=== PATIENT | male | born 1965 | race African-American/Black ===

== ENCOUNTER 2018-12-30 17:55 | Emergency (ER) | payer OTHER ==
[~2018-12-30] VITALS: Ht 165.1 cm; Wt 74.4 kg
--- OUTSIDE RECORDS SUMMARY | 2018-12-30 17:57 | XMS REPORT ---
Author Author [facility] Address Unknown Phone Unavailable Care Team Providers [employer] T[employer] Name Role Phone Brian Ceballos Unavailable Unavailable Problems This patient has no known problems. Allergies, Adverse Reactions, Alerts This patient has no known allergies or adverse reactions. Medications This patient has no known medications. Results Test Description Test Time Test Comments Text Results Atomic Results Result Comments Complete blood count (CBC) with automated white blood cell (WBC) differential 2017-10-25 11:17:00 White blood cell count (test uisr=AXW1652) 2.6 4.3-10.9 Blood erythrocytes count (number/volume) (test pbzn=27127-7) 3.68 M/ul 4.33-5.43 Hemoglobin measurement (test ookq=YNW3927) 13.1 g/dL 13.6-17.9 Blood hematocrit (volume fraction) (test kpvv=73043-7) 38.0 % 39.6-49.0 MCV (test kpyc=56698-7) 103.4 fL 80-100 MCH (test hrqp=67180-3) 35.7 pg 27.0-35.0 MCHC (test code=MCHC) 34.5 g/dL 32.0-36.0 Platelets (test code=PLT) 108 152-406 Red Cell Distribution Width (test code=RDW) 12.4 % 12.1-15.2 Blood platelet mean volume (test ewle=89972-6) 8.8 fL 7.6-11.3 Neutrophils % (test code=MICHELE%) 56.6 % 41.7-73.7 Lymphocytes/leuk NFr Bld (test hodp=35297-3) 32.8 % 15.3-44.8 Monocyte percentage (test qiso=4096-6) 7.9 % 3.3-12.3 Eosinophil % (test ksas=031-6) 2.0 % 0-4.4 Basophil % (test ohgm=01533-3) 0.7 % 0-1.3 Absolute neutrophil count (test akwv=438-4) 1.5 1.8-8.0 Absolute lymphocyte count (test xbvp=88399-3) 0.8 0.7-4.9 Absolute monocyte count (test rlzs=926-1) 0.2 0.1-1.3 Absolute Eosinophils (test code=EOA) 0.1 0-0.5 Absolute Basophils (test code=BASA) 0.0 0-0.5 Blood smear scan (BSS)2017-10-25 11:17:00* Test Item Value Reference Range Comments Blood morphology interpretation narrative (test nmkq=41940-0) NOT SEEN NOT SEEN Basic Metabolic Dibap3751-66-69 11:10:00* Test Item Value Reference Range Comments Sodium level (test qree=JKC6581) 139 meq/L 135-145 3.4 Chloride measurement (test engs=JYQ3183) 107 meq/L 101-111 Bicarbonate (test code=CO2) 27 meq/L 21-31 Glucose measurement (test dmvs=PDH9449) 122 mg/dL 65-120 ADA Clinical Practice Recommendation: <100 mg/dl=Normal Fasting Glucose BUN Bld-mCnc (test wkux=8301-1) 10 mg/dL 6-20 Creatinine measurement (test wthw=IRE7001) 1.04 mg/dL 0.61-1.24 The creatinine method used has been calibrated to be traceable to Isotope dilution Mass Spectrometry (IDMS). For more information: www.nkdep.nih.gov Estimated glomerular filtration rate (GFR) determination (test pany=99475-9) >90 mL =/>90 FOR CHRONIC KIDNEY DISEASE: GFR STAGE DESCRIPTION=/>90 STAGE 1 NORMAL--OR-- MINIMAL KIDNEY DAMAGE WITH NORMAL GFR 60-89 STAGE 2 MILD DECREASE IN GFR 30-59 STAGE 3 MODERATE DECREASE IN GFR 15-29 STAGE 4 SEVERE DECREASE IN GFR <15 STAGE 5 KIDNEY FAILURE The Glomerular Filtration Rate (GFR) has been calculated using the IDMS-Traceable MDRD Study Equation. Calcium Level (test code=CA) 9.1 mg/dL 8.5-10.5 Comment Bed:13
[2018-12-30] MEDS ORDERED: BROMFED DM COU118 ML PO (18:27)
[2018-12-30] MEDS ORDERED: BACTRIM DS TAB1 EACH PO (18:27)
[2018-12-30] MEDS ORDERED: VENTOLIN HFA18 GM PO (18:27)
[2018-12-30] MEDS ORDERED: DOXYCYCLINE HY100 MG PO (18:42)
--- NOTE | 2018-12-30 19:01 | Diagnostic Imaging Report ---
Frontal and lateral views of the chest. HISTORY: Productive cough COMPARISON: None available. DISCUSSION: Lungs: Mild prominence of the central bronchial interstitial markings. No evidence of a consolidative pneumonia or pulmonary alveolar edema. Pleura: No pleural effusion or pneumothorax. Heart and mediastinum: The cardiomediastinal silhouette appears unremarkable. Bones and soft tissues: Appear unremarkable. IMPRESSION: 1. Findings which can be seen in the setting of a nonspecific bronchitis. 2. No consolidative pneumonia. Signed by: Dr. Chevy Bailey D.O., M.M.M. on 12/30/2018 6:58 PM
== END 2018-12-30 19:06 | disposition home or self-care (01) ==
LOC: FSED 17:55
DX: R05 Cough (principal); J20.9 Acute bronchitis, unspecified; B20 Human immunodeficiency virus [HIV] disease
CPT/HCPCS: 71046; 87400; 99283

== ENCOUNTER 2019-01-27 13:52 | Emergency (ER) | payer OTHER ==
[~2019-01-27] VITALS: Ht 165.1 cm; Wt 74.4 kg
[~2019-01-27 13:52] MED LIST: BACTRIM DS TAB1 EACH PO; BROMFED DM COU118 ML PO; DOXYCYCLINE HY100 MG PO; VENTOLIN HFA18 GM PO
[2019-01-27 15:12] LABS: BASOPHILS % 0.4 % (0.0-1.0); EOSINOPHILS # (AUTO) 0.1 (0.0-0.4); EOSINOPHILS % 2.7 % (0.0-6.0); HEMATOCRIT 30.2 % (38.2-49.6); HEMOGLOBIN 10.8 g/dL (14.0-18.0); LYMPHOCYTES # (AUTO) 0.8 (1.0-3.2); LYMPHOCYTES % 36.3 % (18.0-39.1); MEAN CORPUSCULAR HEMOGLOBIN 37.6 pg (28-32); MEAN CORPUSCULAR HGB CONC 35.8 g/dL (31-35); MEAN CORPUSCULAR VOLUME 105.2 fL (81-99); MONOCYTES # (AUTO) 0.3 (0.2-0.8); MONOCYTES % 15.2 % (4.4-11.3); NEUTROPHILS % 45.4 % (38.7-80.0); RED BLOOD COUNT 2.87 x10e6/uL (4.3-5.7); RED CELL DISTRIBUTION WIDTH 15.7 % (11.7-14.4)
[2019-01-27 15:15] LABS: PLATELET COUNT 70 x10e3/uL (140-360)
[2019-01-27 15:17] LABS: INR 1.11; PROTHROMBIN TIME 14.8 seconds (11.9-14.5)
[2019-01-27 15:24] LABS: ALANINE AMINOTRANSFERASE 55 IU/L (0-55); ALBUMIN 2.2 g/dL (3.5-5.0); ALBUMIN/GLOBULIN RATIO 0.4 (0.8-2.0); ALKALINE PHOSPHATASE 200 IU/L (40-150); ANION GAP 8.4 mmol/L (8-16); BLOOD UREA NITROGEN 9 mg/dL (7-26); BUN/CREATININE RATIO 10 (6-25); CALCIUM 7.9 mg/dL (8.4-10.2); CARBON DIOXIDE 23 mmol/L (22-29); CHLORIDE 107 mmol/L (98-107); CREATINE KINASE 176 IU/L (30-200); CREATININE, SERUM 0.91 mg/dL (0.72-1.25); EST GLOMERULAR FILTRATION RATE > 60 ML/MIN (60-); GLUCOSE 87 mg/dL (74-118); POTASSIUM 3.4 mmol/L (3.5-5.1); SODIUM 135 mmol/L (136-145)
--- NOTE | 2019-01-27 15:44 | Diagnostic Imaging Report ---
EXAMINATION: CHEST 2 VIEWS INDICATION: Chest pain ^cp ^[id number] ^[id number] ^N COMPARISON: 12/30/2018 FINDINGS: TUBES and LINES: None. LUNGS: Lungs are well inflated. Lungs are clear. There is no evidence of pneumonia or pulmonary edema. PLEURA: No pleural effusion or pneumothorax. HEART AND MEDIASTINUM: The cardiomediastinal silhouette is unremarkable. BONES AND SOFT TISSUES: No acute osseous lesion. Soft tissues are unremarkable. UPPER ABDOMEN: No free air under the diaphragm. IMPRESSION: No acute thoracic abnormality. Signed by: Dr. Nirmal Moctezuma M.D. on 01/27/2019 3:40 PM
== END 2019-01-27 17:26 | disposition home or self-care (01) ==
LOC: ER 13:52
DX: R07.89 Other chest pain (principal); Z87.891 Personal history of nicotine dependence; Z21 Asymptomatic human immunodeficiency virus [HIV] infection status
CPT/HCPCS: 36415; 71046; 80053; 82550; 82553; 84484; 85025; 85610; 85730; 93005; 99283